=== PATIENT | female | born 2005 | race Hispanic/Latino ===

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

== ENCOUNTER 2024-02-15 14:44 | Emergency (ER) | payer OTHER, SELFPAY ==
[2024-02-15 15:02] LABS: Absolute Eosinophils 0.1 K/uL (0-0.5); Absolute Lymphocytes (CBC) 1.4 K/uL (0.7-4.9); Absolute Monocytes 0.3 K/uL (0.1-1.3); Absolute Neutrophil 3.8 K/uL (1.8-8.0); Basophils % 0.2 % (0-1.3); Eosinophils % 0.9 % (0-4.4); Hematocrit 32.2 % (36.0-45.0); Hemoglobin 10.6 g/dL (12.0-15.0); Lymphocytes % 25.6 % (15.3-44.8); MCH 29.5 pg (27.0-35.0); MCV 89.3 fL (80-100); MPV 7.6 fL (7.6-11.3); Monocytes % 5.2 % (3.3-12.3); Neutrophils % 68.1 % (41.7-73.7); Nucleated Red Blood Cells % 0.1 % (0-0); Platelets 228 thou/uL (152-406); RBC Red Blood Cell Count 3.61 M/uL (3.86-4.86); Red Cell Distribution Width 17.2 % (12.1-15.2)
[2024-02-15 15:24] LABS: ALT/SGPT 17 U/L (13-56); Albumin 3.5 g/dL (3.4-5.0); Albumin/Globulin Ratio 1.1 (1.1-1.8); Alkaline Phosphatase 48 U/L (45-117); Anion Gap 8.4 mEq/L (5.0-15.0); BUN Blood Urea Nitrogen 11 mg/dL (7-18); Bicarbonate 24 mEq/L (21-32); Bilirubin Direct 0.2 mg/dL (0-0.2); Bilirubin Indirect, Calculated 0.3 mg/dL (0.2-0.8); Bilirubin Total 0.5 mg/dL (0.2-1.0); Globulin 3.1 g/dL (2.3-3.5); Glomerular Filtration Rate 98 ml/min (=/>90); Glucose Level 208 mg/dL (74-106); Magnesium 1.7 mg/dL (1.6-2.4); Potassium 3.4 mEq/L (3.5-5.1); Protein, Total 6.6 g/dL (6.4-8.2); Sodium Level 137 mEq/L (136-145)
[2024-02-15 15:33] LABS: AST/SGOT < 10 U/L (15-37); Troponin High Sensitivity < 3.0 pg/mL (<58.9)
[2024-02-15 16:00] LABS: Specific Gravity < 1.005 (1.005-1.030)
[2024-02-15 16:12] LABS: Specific Gravity < 1.005 (1.005-1.030); Sqamous Epithelial <5 /HPF (None Seen); Urine Bacteria <20 /HPF (<20); Urine Bilirubin NEGATIVE (Negative); Urine Blood 1+ (Negative); Urine Clarity Turbid (Clear); Urine Color Colorless (Yellow); Urine Culture Reflex Order NOT NEEDED; Urine Glucose NEGATIVE (Negative); Urine Ketones NEGATIVE (Negative); Urine Microscopic Reflex YN ORDER UMIC; Urine Nitrite NEGATIVE (Negative); Urine Protein NEGATIVE (Negative); Urine RBC <5 /HPF (None Seen); Urine Urobilinogen Normal (Normal); Urine WBC <5 /HPF (<5)
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
--- NOTE | 2024-02-15 16:45 | ER ---
Nurse's Notes [facility] Name: Manju Marquez Age: 18 yrs Sex: Female : 2005 Arrival Date: 02/15/2024 Time: 14:44 Bed DX3 Private MD: Diagnosis: Hypoglycemia, unspecified;Syncope Near Presentation: 02/14 14:50 Chief complaint: Patient states: she was at b when she began to feel bad. states kc6 after that she went to the [employer] and when she sat down to eat lunch she lost her appetite and started to feel bad again. BGL en route for EMS 52. D10 infusing upon arrival. Coronavirus screen: At this time, the client does not indicate any symptoms associated with coronavirus-19. Ebola Screen: No symptoms or risks identified at this time. Initial Sepsis Screen: Does the patient meet any 2 criteria? No. Patient's initial sepsis screen is negative. Does the patient have a suspected source of infection? No. Patient's initial sepsis screen is negative. Risk Assessment: Do you want to hurt yourself or someone else? Patient reports no desire to harm self or others. Onset of symptoms was February 15, 2024. 14:50 Method Of Arrival: EMS: [facility] kc6 14:50 Acuity: BEST 3 kc6 14:50 Care prior to arrival: Medication(s) given: D10 IV initiated. 20 GA, in the right kc6 antecubital area, Glucose check: 52. Triage Assessment: 14:52 General: Appears in no apparent distress. comfortable, well groomed, well developed, kc6 Behavior is calm, cooperative, appropriate for age. Pain: Denies pain. EENT: No signs and/or symptoms were reported regarding the EENT system. Neuro: Level of Consciousness is awake, alert, obeys commands, Oriented to person, place, time, situation, Appropriate for age. Cardiovascular: Capillary refill < 3 seconds. Respiratory: Airway is patent Trachea midline Respiratory effort is even, unlabored, Respiratory pattern is regular, symmetrical. GI: No signs and/or symptoms were reported involving the gastrointestinal system. : No signs and/or symptoms were reported regarding the genitourinary system. Derm: No signs and/or symptoms reported regarding the dermatologic system. Skin is intact, is healthy with good turgor, Skin is pink, warm \T\ dry. Musculoskeletal: No signs and/or symptoms reported regarding the musculoskeletal system. Circulation, motion, and sensation intact. Capillary refill < 3 seconds, Range of motion: intact in all extremities. 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 - Infectious Disease History:: Denies. - Social history:: Smoking status: Patient denies any tobacco usage or history of. Screenin:54 [facility] ED Fall Risk Assessment (Adult) History of falling in the last 3 months, kc6 including since admission No falls in past 3 months (0 pts) Confusion or Disorientation No (0 pts) Intoxicated or Sedated No (0 pts) Impaired Gait No (0 pts) Mobility Assist Device Used No (0 pt) Altered Elimination No (0 pt) Score/Fall Risk Level 0 - 2 = Low Risk. Abuse screen: Denies threats or abuse. Denies injuries from another. Nutritional screening: No deficits noted. Tuberculosis screening: No symptoms or risk factors identified. Assessment: 14:54 Reassessment: please see triage. [facility] Vital Signs: 14:50 BP 111 / 72; Pulse 76; Resp 16 S; Pulse Ox 100% on R/A; Weight 46.27 kg (R); Height 5 kc6 ft. 0 in. (R); 14:50 Body Mass Index 19.92 (46.27 kg, 152.4 cm) [facility] ED Course: 14:47 Patient arrived in ED. kb 14:47 Anne Gooden FNP-C is [facility]. kb 14:47 Danny New MD is Attending Physician. kb 14:50 Garima Moses RN is Primary Nurse. kc6 14:52 Triage completed. kc6 14:52 Arm band placed on. kc6 14:53 Maintain EMS IV. Dressing intact. Good blood return noted. Site clean \T\ dry. Gauge \T\ malia 6 site: 20G RAC. 14:54 Patient has correct armband on for positive identification. Bed in low position. Call kc6 light in reach. Side rails up X2. Client placed on continuous cardiac and pulse oximetry monitoring. NIBP monitoring applied. Pillow given. 16:55 No provider procedures requiring assistance completed. IV discontinued, intact, iw bleeding controlled, No redness/swelling at site. Pressure dressing applied. Administered Medications: No medications were administered Medication: 16:55 VIS not applicable for this client. iw Point of Care Testing: Blood Glucose: 16:55 Blood Glucose: 203 mg/dL; iw Ranges: Outcome: 16:45 Discharge ordered by . jayson 16:55 Discharged to home ambulatory, with family, iw 16:55 Condition: good 16:55 Discharge instructions given to patient, Instructed on discharge instructions, follow up and referral plans. Demonstrated understanding of instructions, follow-up care, 16:56 Patient left the ED. iw Signatures: Anne Gooden, COPRA PROCESSOR-C COPRA PROCESSOR-Samantha Limon, RN RN iw Garima Moses RN RN kc6
[2024-02-15 17:35] VITALS: BP 111/72; O2SAT 100
--- NOTE | 2024-02-17 14:06 | EKG ---
Test Date: 2024-02-15 Test Time: 15:23:36 [employer]: NICA MEASUREMENT RESULTS: Intervals: Rate: 80 MO: 120 QRSD: 96 QT: 374 QTc: 431 Bagley: P: 76 MO: 120 QRS: 92 T: 57 INTERPRETIVE STATEMENTS: Normal sinus rhythm with sinus arrhythmia Normal ECG No previous ECG available for comparison Electronically Signed On 02-17-24 14:00:59 CDT by Kelton Garcia
== END 2024-02-15 16:56 | disposition home or self-care (01) ==
LOC: ER 14:44
DX: E16.2 Hypoglycemia, unspecified (principal)
CPT/HCPCS: 36415; 80048; 80076; 81001; 81025; 82947; 83735; 84484; 85025; 93005